=== PATIENT | female | born 1980 | race African-American/Black ===

== ENCOUNTER 2017-09-12 08:20 | Day surgery (SDC) | payer OTHER ==
[~2017-09-12 08:20] MED LIST: GLYCOPYRROLATE 0.4 MG INJ
[2017-09-12] MEDS ORDERED: PROPOFOL 0 ML (08:59)
[2017-09-12] MEDS ORDERED: ROCURONIUM 50 MG INJ ×2 (08:59→09:01)
[2017-09-12] MEDS ORDERED: CEFAZOLIN 1 GM INJ ×2 (08:59→09:02)
[2017-09-12] MEDS ORDERED: NEOSTIGMINE 3 MG/3 ML SYRINGE ×2 (08:59→09:02)
[2017-09-12] MEDS ORDERED: FENTAnyl 50 MCG/ML VIAL ×2 (08:59→09:02)
[2017-09-12] MEDS ORDERED: ONDANSETRON 4 MG INJ ×2 (08:59→09:02)
[2017-09-12] MEDS ORDERED: DEXAMETHASONE 4 MG/ML 1 ML INJ ×2 (08:59→09:02)
[2017-09-12] MEDS ORDERED: MIDAZOLAM 1 MG/ML 2 ML INJ ×2 (08:59→09:02)
[2017-09-12] MEDS ORDERED: PROPOFOL 20 ML (09:02)
[2017-09-12] MEDS: HYDROmorphONE 0.5 MG/0.5 ML SYG IV (10:40)
[2017-09-12] MEDS ORDERED: DEXTROSE 5%-0.9% NACL 1,000 ML IV (11:00)
[2017-09-12] MEDS ORDERED: CLINDAMYCIN 900 MG/D5W (PMX) 50 ML IVPB (11:00)
[2017-09-12] MEDS ORDERED: MEPERIDINE 25 MG INJ IV (12:30)
[2017-09-12] MEDS ORDERED: TRIMETHOBENZAMIDE 100 MG/ML VIAL IM (12:30)
[2017-09-12] MEDS ORDERED: ONDANSETRON 4 MG INJ IV (12:30)
[2017-09-12] MEDS ORDERED: IPRATROPIUM (NEB) 0.5 MG/2.5 ML AMP HHN (12:30)
[2017-09-12] MEDS ORDERED: ALBUTEROL 0.083% (NEB) 2.5 MG/3 ML AMP HHN (12:30)
[2017-09-12] MEDS ORDERED: EPHEDrine SULFATE 50 MG/5 ML SYG IV (12:30)
[2017-09-12] MEDS ORDERED: LABETALOL HCL 20MG INJ IV (12:30)
[2017-09-12] MEDS ORDERED: MIDAZOLAM 1 MG/ML 2 ML INJ IV (12:30)
[2017-09-12] MEDS ORDERED: DIPHENHYDRAMINE 50 MG INJ IV (12:30)
[2017-09-12] MEDS ORDERED: FENTAnyl 50 MCG/ML VIAL IV ×3 (12:30)
[2017-09-12] MEDS ORDERED: HYDROmorphONE (0.2 MG/ML) 10ML SYG IV ×2 (12:30)
[2017-09-12] MEDS ORDERED: hydrALAzine 20 MG INJ IV (12:30)
[2017-09-12] MEDS ORDERED: OXYCODONE/ACETAMINOPHEN (5/325) TAB PO ×2 (12:30)
[2017-09-12] MEDS ORDERED: KETOROLAC 30 MG INJ (12:48)
[2017-09-12] MEDS: HYDROmorphONE (0.2 MG/ML) 10ML SYG IV ×2 (13:50→13:56)
== END 2017-09-12 15:23 | disposition home or self-care (01) ==
LOC: SDS 08:20
DX: N85.9 Noninflammatory disorder of uterus, unspecified (principal); Z88.0 Allergy status to penicillin
CPT/HCPCS: 58563; 84703; 93005